=== PATIENT | female | born 1995 | race Caucasian/White ===

== ENCOUNTER 2018-05-11 07:17 | Inpatient (IN) ==
[2018-05-11] MEDS ORDERED: Ondansetron 4 MG/2 ML VIAL IVP PRN (07:42)
[2018-05-11] MEDS ORDERED: Naloxone 0.4 MG/ML INJ IVP PRN (07:42)
[2018-05-11] MEDS ORDERED: Famotidine 20 MG/2 ML VIAL IVP PRN (07:42)
[2018-05-11] MEDS ORDERED: *HR* Nalbuphine 10 MG/ML AMPUL IVP PRN (07:42)
[2018-05-11] MEDS ORDERED: Metoclopramide 10 MG/2 ML VIAL IVP PRN (07:42)
[2018-05-11 08:20] LABS: Basophils % 0.1 %; Eosinophils # 0.1 K/mcL (0.0-0.6); Eosinophils % 1.3 %; Hematocrit 30.3 % (35.3-44.9); Immature Granulocytes % 0.3 % (0-4); Lymphocytes # 1.2 K/mcL (0.6-4.6); Lymphocytes % 18.3 %; Mean Corpuscular Volume 93.8 fL (83.0-100.0); Monocytes # 0.4 K/mcL (0.0-1.3); Monocytes % 5.6 %; Platelet Count 153 K/mcL (140-400); Red Blood Count 3.23 M/mcL (3.82-4.97); Red Cell Distribution Width 13.7 % (11.5-14.5); Segmented Neutrophils % 74.4 %
[2018-05-11 08:28] LABS: Amphetamine Screen,Urine Negative ng/mL (Cutoff=1000); Barbiturate Screen,Urine Negative ng/mL (Cutoff=200); Benzodiazepines Screen,Urine Negative ng/mL (Cutoff=200); Cannabinoid Screen,Urine Negative ng/mL (Cutoff = 50); Cocaine Screen,Urine Negative ng/mL (Cutoff= 300); Opiate Screen,Urine Negative ng/mL (Cutoff=300); Phencyclidine Screen,Urine Negative ng/mL (Cutoff=25)
[2018-05-11] MEDS ORDERED: miSOPROStol 25 MCG TABLET PO PRN (08:39)
[2018-05-11] MEDS ORDERED: Oxytocin 20 units/ LR 1000 mL 20 UNIT/1,000 ML BAG IVC SCH (08:45)
[2018-05-11] MEDS: Ringers Solution, Lactated 1,000 ML IVC SCH ×3 (09:17→18:26)
--- NOTE | 2018-05-11 09:38 | Anesthesia Evaluation PreOp ---
Date of Encounter: 05/11/18 Time of Encounter: 08:45 - Past History Planned Operation: nixon Cardiac History: Denies any Significant Hx Pulmonary History: Denies Any Significant HX SURVEY STATISTICIAN History: Denies Any Significant HX Other Medical History: Denies Any Significant HX Anesthesia History: No Prior Anesthetic Complications : Yes Test: Positive Alcohol Use: none, unknown Drug use: none Medications and Allergies Multivitamin [Flintstones] 1 tab PO DAILY 01/06/18 [History] 3 Allergy/AdvReac Type Severity Reaction Status Date / Time Penicillins Allergy See Verified 05/11/18 07:59 Comments - Meds/Allergy Pre-op Review Medications Reviewed: Yes Allergies Reviewed: Yes Beta Blockers on Current Med List: No Anesthesia Results - Labs 05/11/18 08:00 Anesthesia Exam - HEENT Pupil (Motor): Pupils equal Mallampati: II Oral Opening: Greater than 3 - SURVEY STATISTICIAN LOC: Oriented SURVEY STATISTICIAN Motor: Normal RUE, Normal LUE, Normal RLE, Normal LLE, Normal Face SURVEY STATISTICIAN Sensory: Normal: RUE, LUE, RLE, LLE, Face - Cardiac Rhythm: Regular Murmur: None JVD: No Carotid Bruit: No - Pulmonary Breath Sounds: bilateral Clear Respiratory Effort: Symmetrical Anesthesia Assess/Plan ASA Score: 2 Modified Sasha Scale for Level of Consciousness: Cooperative, oriented, and tranquil Anesthetic Plan: Regional Autologous Blood: No Monitoring Plan: Standard Monitors
[2018-05-11] MEDS ORDERED: Epidural Premix (fent/bupiv) 110 ML EP SCH (09:45)
--- NOTE | 2018-05-11 11:43 | OB/GYN History & Physical ---
Date of Encounter: 05/11/18 Time of Encounter: 11:40 Assessment and Plan (1) 39 weeks gestation of Current visit: Yes Status: Acute (2) Elective induction of labor planned Current visit: Yes Status: Acute Admit to labor and delivery Cytotec 50 g by mouth 1 Nubain and epidural as desired Vancomycin for GBS prophylaxis Anticipate History of Present Illness HPI: Ms. Pelaez is a 23 year old female 39+ weeks gestation presents for induction of labor. care with midwives, course complicated by maternal obesity, smoking, Rh-, short-term interval between pregnancies last delivery 11 months ago. Reports good movement, denies vaginal bleeding contractions or leaking of fluid. Labs: O negative, rubella immune, GBS +, all other serologies negative. Past Med Surg Social Fam HX - Past Medical History Medical history: no medical history Psychiatric history: anxiety - Past Surgical History Surgical History: no surgical history - Social History Smoking Status: Former smoker Smokeless Tobacco Status: No Alcohol use: none, unknown Drug use: none - Family History Mother Living Status: Hx Family Cardiac Disorders: No Hx Family Respiratory Disorders: No Hx Family Cancer: No Hx Family GI Disorders: No Hx Family Genitourinary Disorders: No Hx Family Endocrine Disorder: No Hx Family Musculoskeletal Disorders: No Hx Family Neuromuscular Disorders: No Hx Family Neurologic Disorders: No Hx Family HEENT Disorders: No Hx Family Autoimmune Disorders: No Hx Family Reproductive Disorders: No Hx Family Psychosocial Disorders: No Hx Family Medical Disorders: No Obstetrical History - Pregnancies : 2 Para: 1 Term: 1 : 0 Ab's: 0 Livin Medications and Allergies Multivitamin [Flintstones] 1 tab PO DAILY 01/06/18 [History] 3 Allergy/AdvReac Type Severity Reaction Status Date / Time Penicillins Allergy See Verified 05/11/18 07:59 Comments Exam - Constitutional Constitutional: well developed, well nourished, no acute distress - Neck Neck exam: full ROM - Lungs Respiratory exam: CTAB - Cardiovascular Cardiovascular exam: RRR - Abdomen Abdomen: Present: gravid, non tender - Extremities Extremities exam: normal capillary refill, normal inspection - Cervix Dilation: 1 (per RN) Results Result Diagrams: 05/11/18 08:00 Abnormal lab results RBC 3.23 M/mcL (3.82-4.97) L 05/11/18 08:00 Hgb 10.0 g/dL (11.5-15.4) L 05/11/18 08:00 Hct 30.3 % (35.3-44.9) L 05/11/18 08:00 All other labs normal. - VTE Reasons for not Prescribing Prophylaxis: Treatment not Indicated - Low risk for VTE
--- NOTE | 2018-05-11 14:27 | OB Labor Progress Note ---
Date of Encounter: 05/11/18 Time of Encounter: 14:00 Labor Progress Note - Subjective Subjective: Pt states feeling more contractions - Cervix Cervix: 3/80/-2 - Heart Tones Heart Tones: Pt very non cooperative with montoring, 130/moderate/+accels when tracing - [place]: q2 - Plan Plan: Patient chandana and making cervical change Epidural when anesthesia available May have Nubain prior to epidural Plan to rupture after epidural placement Continue vancomycin for GBS prophylaxis Anticipate
[2018-05-11] MEDS ORDERED: Acetaminophen 325 MG TABLET PO PRN (14:33)
[2018-05-11] MEDS ORDERED: Lidocaine -MPF 1% 5 ML AMPUL ONE (15:07)
--- NOTE | 2018-05-11 15:56 | Anesthesia Procedures ---
Date of Encounter: 05/11/18 Time of Encounter: 15:50 Procedures: Anesthesia - Epidural/Spinal Patient ID/Chart reviewed: Yes Patient examined: Yes OB Eval: Gestational age: 39.1 OB Eval: : 2 OB Eval: Hx Para: 1 OB Eval: Contractions: Non-stressed pattern Supplemental Oxygen: None/Room Air Site Prep: Aseptic Technique, Sterile prep and drape, Povidone-Iodine 1% Patient position: upright Amount of Local Anesthetic used: 3 Touhy Needle Gauge: 18 Touhy Needle Depth (cm): 7 Catheter Depth at Skin (cm): 14 Test Dose Result: Negative Loading Dose Administered: Thru Catheter Infusion Rate (mls/hr): [address]: Tegaderm, Tape Interspace Used: L4-L5 Loss of Resistance (ALEIDA): Yes Blood: No CSF: No Paresthesia: No Vitals + FHT's: stable throughout see nursing record, tolerated procedure well.
--- NOTE | 2018-05-11 17:35 | OB Labor Progress Note ---
Date of Encounter: 05/11/18 Time of Encounter: 17:33 Labor Progress Note - Subjective Subjective: Pt comfortable with epidural - Cervix Cervix: 3/80/-1 - Heart Tones Heart Tones: 125/moderate/-accels/-decels - [place] Ione: 1-3 - Interventions Interventions: AROM for clear fluid IUPC placed FSE placed x2 first one not appropriately attached. - Plan Plan: Start pitocin per policy frequent repositioning Vancomycin for GBS Anticipate
--- NOTE | 2018-05-11 21:10 | OB Labor Progress Note ---
Date of Encounter: 05/11/18 Time of Encounter: 21:08 Labor Progress Note - Subjective Subjective: Comfortable with epidural - Cervix Cervix: 4/90/-2 - Heart Tones Heart Tones: 140/moderate/-accels/variables - [place]: q2 - Plan Plan: Continue pitocin per policy frequent repositioning vancomycin for GBS anticipate
--- NOTE | 2018-05-11 23:47 | OB/GYN Procedure Note ---
Delivery - Delivery Date: 05/11/18 Provider: Raquel Wilson Intrapartum events: none Delivery induction: AROM, oxytocin, misoprostol Delivery monitor: external FHT, external uterine, internal FHT, internal uterine Anesthesia: epidural Quantitated Blood Loss: 400 - Infant (s) Infant A Delivery Date: 05/11/18 Delivery Time: 23:29 Presentation: vertex Position: OA Route of delivery: Gender: Male Viability: Viable at 1 minute: 8 at 5 mins: 9 Shoulder Dystocia: not encountered Specimens collected: cord blood Placenta: spontaneous Cord: 3 umbilical vessels - Repair Episiotomy: none Laceration Description: None - Complications Delivery complications: none Delivery comments: Elective induction of labor, progressed to complete. Maternal bearing down efforts to of liveborn male. Vertex delivered OA, shoulders and body easily followed. No nuchal cord or shoulder dystocia encountered. Vigorous infant placed on lower maternal pelvis, due to short cord, Apgars 8/9. Placenta delivered spontaneously ([place]) and complete upon inspection. Fundus massaged until firm and Pitocin started per policy. Perineum intact. EBL 400 - Disposition Mom disposition: stable in LDR [place] disposition: stable in LDR
[2018-05-12] MEDS ORDERED: Rho Immune Globulin 1,500 UNIT SYRINGE IM PRN (02:17)
[2018-05-12] MEDS ORDERED: Lanolin 7 G OINT...G. TP PRN (02:17)
[2018-05-12] MEDS ORDERED: Benzocaine/Menthol 56 GM AEROSOL SPRAY TP PRN (02:17)
[2018-05-12] MEDS ORDERED: Oxytocin 20 units/ LR 1000 mL 20 UNIT/1,000 ML BAG IVC SCH (02:17)
[2018-05-12] MEDS: Acetaminophen 325 MG TABLET PO PRN ×3 (03:07→16:50)
[2018-05-12 07:02] LABS: Basophils % 0.3 %; Eosinophils % 0.3 %; Hemoglobin 9.5 g/dL (11.5-15.4); Immature Granulocytes % 0.3 % (0-4); Lymphocytes # 1.3 K/mcL (0.6-4.6); Lymphocytes % 11.3 %; Mean Corpuscular HGB Conc 31.7 g/dL (31.6-35.5); Mean Corpuscular Hemoglobin 30.4 pg (28.0-33.3); Mean Corpuscular Volume 95.8 fL (83.0-100.0); Mean Platelet Volume 12.2 fL (9.4-12.4); Monocytes # 0.7 K/mcL (0.0-1.3); Monocytes % 5.8 %; Neutrophils # 9.7 K/mcL (1.6-8.9); Platelet Count 143 K/mcL (140-400); Red Blood Count 3.13 M/mcL (3.82-4.97); Red Cell Distribution Width 13.7 % (11.5-14.5)
[2018-05-12] MEDS: Prenatal Vit/FA 1 EACH TABLET PO SCH (09:24)
--- NOTE | 2018-05-12 11:12 | OB/GYN Progress Note ---
Date of Encounter: 05/12/18 Time of Encounter: 11:10 - Assessment and Plan (1) Vaginal delivery Current Visit: Yes Status: Acute Continue routine care anticipate discharge home tomorrow Subjective - Subjective Principal diagnosis: day 1 Interval history: Patient doing well. Patient meeting day 1 milestones. Patient denies pain at this time. Patient reports: appetite normal, voiding normally, pain well controlled, ambulating normally [place]: doing well, bottle feeding Objective - Latest Vital Signs Latest vital signs: Vital Signs Temp Pulse Resp BP Pulse Ox 05/12/18 08:19 98.6 F 83 14 95/67 96 05/12/18 04:31 98.8 F 94 14 106/63 98 05/12/18 03:10 98.3 F 88 18 104/65 96 05/12/18 02:10 98.7 F 84 18 104/57 98 Intake and Output 05/11/18 05/12/18 05/12/18 23:59 07:59 15:59 Intake Total 1000 / 1000 200 / 200 900 / 900 Output Total 1550 / 1550 300 / 300 Balance 1000 / 1000 -1350 / -1350 600 / 600 Intake: IV Fluids 1000 / 1000 Lactated Ringers 1,000 ML @ 125 1000 / 1000 mls/hr IVC .Q8H TYRA Rx#: [id number] Oral 200 / 200 900 / 900 Output: Urine 550 / 550 300 / 300 Catheter 1000 / 1000 Other: Meal Breakfast Percent of Meal Consumed 10% Weight 134.1 kg Patient Weight 05/12/18 23:59 Weight 134.1 kg - Exam Lungs: bilateral: normal Abdomen: Present: normal appearance, soft Uterus: Present: normal, firm Uterus Position: At Umbilicus, Midline - Labs Labs: Laboratory Results - last 24 hr 05/12/18 05/12/18 00:50 06:34 WBC 11.8 H D RBC 3.13 L Hgb 9.5 L Hct 30.0 L MCV 95.8 MCH 30.4 MCHC 31.7 RDW 13.7 Plt Count 143 MPV 12.2 Immature Gran % 0.3 Seg Neutrophils % 82.0 Lymphocytes % 11.3 Monocytes % 5.8 Eosinophils % 0.3 Basophils % 0.3 Neutrophils # 9.7 H Lymphocytes # 1.3 Monocytes # 0.7 Eosinophils # 0.0 Basophils # 0.0 Baby's Blood Type A RH NEGATIVE Mother's Blood Type O RH NEGATIVE
[2018-05-12] MEDS ORDERED: Aminoglycoside Consult 1 EACH MC ONE (14:04)
[2018-05-12] MEDS: Ibuprofen 600 MG TABLET PO PRN (20:41)
[2018-05-13] MEDS: Prenatal Vit/FA 1 EACH TABLET PO SCH (07:47)
[2018-05-13 08:26] VITALS: BP 101/68
--- NOTE | 2018-05-13 08:44 | Discharge Summary ---
Date of Encounter: 05/13/18 Time of Encounter: 08:55 - Discharge Diagnosis (1) Status post normal vaginal delivery Priority: Primary Status: Acute Comments: Eating and drinking well. Voiding well. Had normal BM. Some cramping and back pain but well controlled with ibuprofen with minimal bleeding. Mood is good. Desires Depo shot prior to discharge. Stable for discharge. Follow up 4 weeks. (2) Low hemoglobin Priority: Secondary Status: Acute Comments: Hgb 9.5 today. Will continue Fe as outpatient. - Discharge Medications Prescriptions: Ibuprofen [Motrin] 600 mg PO Q6HR PRN 14 Days #56 tablet PRN Reason: Cramping Docusate [Colace] 100 mg PO BID 14 Days #28 capsule Ferrous Sulfate 325 mg PO DAILY 30 Days #30 tablet Home Medications: Multivitamin [Flintstones] 1 tab PO DAILY 01/06/18 [History] Docusate [Colace] 100 mg PO BID 14 Days #28 capsule 05/13/18 [Rx] Ferrous Sulfate 325 mg PO DAILY 30 Days #30 tablet 05/13/18 [Rx] Ibuprofen [Motrin] 600 mg PO Q6HR PRN 14 Days #56 tablet 05/13/18 [Rx] Vit/FA 1 each PO DAILY tablet 05/13/18 [Rx] Allergies/Adverse Reactions: 3 Allergy/AdvReac Type Severity Reaction Status Date / Time Penicillins Allergy See Verified 05/11/18 07:59 Comments Data Procedures and tests throughout hospitalization: Laboratory Tests 05/11/18 05/11/18 05/11/18 08:00 08:00 08:00 WBC 6.8 RBC 3.23 L Hgb 10.0 L Hct 30.3 L MCV 93.8 MCH 31.0 MCHC 33.0 RDW 13.7 Plt Count 153 MPV 12.0 Immature Gran % 0.3 Seg Neutrophils % 74.4 Lymphocytes % 18.3 Monocytes % 5.6 Eosinophils % 1.3 Basophils % 0.1 Neutrophils # 5.0 Lymphocytes # 1.2 Monocytes # 0.4 Eosinophils # 0.1 Basophils # 0.0 Urine Opiates Screen Negative Ur Barbiturates Screen Negative Ur Phencyclidine Scrn Negative Ur Amphetamines Screen Negative U Benzodiazepines Scrn Negative Urine Cocaine Screen Negative U Marijuana (THC) Screen Negative Ur Drug Screen Interp See Below Hep Bs Antigen Nonreactive Baby's Blood Type Mother's Blood Type Rhogam Indicated 05/12/18 05/12/18 00:50 06:34 WBC 11.8 H D RBC 3.13 L Hgb 9.5 L Hct 30.0 L MCV 95.8 MCH 30.4 MCHC 31.7 RDW 13.7 Plt Count 143 MPV 12.2 Immature Gran % 0.3 Seg Neutrophils % 82.0 Lymphocytes % 11.3 Monocytes % 5.8 Eosinophils % 0.3 Basophils % 0.3 Neutrophils # 9.7 H Lymphocytes # 1.3 Monocytes # 0.7 Eosinophils # 0.0 Basophils # 0.0 Urine Opiates Screen Ur Barbiturates Screen Ur Phencyclidine Scrn Ur Amphetamines Screen U Benzodiazepines Scrn Urine Cocaine Screen U Marijuana (THC) Screen Ur Drug Screen Interp Hep Bs Antigen Baby's Blood Type A RH NEGATIVE Mother's Blood Type O RH NEGATIVE Rhogam Indicated NO Labs on day of discharge: Labs from last 24 hours 05/12/18 00:50 Baby's Blood Type A RH NEGATIVE Mother's Blood Type O RH NEGATIVE Rhogam Indicated NO Date of admission: 05/11/18 07:17 Primary care physician: PCP NONE Consults: 05/12/18 02:17 Consult to [facility] [CONS] Routine Comment: Vaginal delivery, consult needed Discharging clinician: Samaria Villar Anticipated date of discharge: 05/13/18 - Patient Status Disposition: Home, Self-Care Condition: Good Functional capacity at discharge: independent ambulation Overall status at discharge: patient is progressing back to baseline - Discharge Instructions Follow Up With: Saroj Manriquez MD [Family Provider] - NONE,PCP [Primary Care Provider] - [facility] [Provider Group] Additional Instructions: - Follow up with [facility] in four weeks time. - Should you develop any vaginal bleeding similar to a period, soaking many pads or large clots, please call the office. If you develop any feelings of hopelessness, worthlessness, inability to moore to baby, or thoughts of harming yourself or others please contact the office or be seen in the hospital for treatment. - Take Iron tablets, twice daily with apple or orange juice until your follow up appointment. This is constipating so ensure you are well hydrated with water and continue taking docusate. - Take Ibuprofen 600mg every 6 hours as needed for pain and cramping. - Diet and Activity Activity: increase activity as tolerated Diet: advance to your usual diet Hospital Course [facility] Hospital course: Delivery - Delivery Date: 05/11/18 Provider: Raquel Wilson Intrapartum events: none Delivery induction: AROM, oxytocin, misoprostol Delivery monitor: external FHT, external uterine, internal FHT, internal uterine Anesthesia: epidural Quantitated Blood Loss: 400 - (s) Infant A Delivery Date: 05/11/18 Infant Delivery Time: 23:29 Presentation: vertex Position: OA Route of delivery: Gender: Male Viability: Viable at 1 minute: 8 at 5 mins: 9 Shoulder Dystocia: not encountered Specimens collected: cord blood Placenta: spontaneous Cord: 3 umbilical vessels - Repair Episiotomy: none Laceration Description: None - Complications Delivery complications: none Delivery comments: Elective induction of labor at 39+ weeks, progressed to complete. Maternal bearing down efforts to of liveborn male. Vertex delivered OA, shoulders and body easily followed. No nuchal cord or shoulder dystocia encountered. Vigorous infant placed on lower maternal pelvis, due to short cord , Apgars 8/9. Placenta delivered spontaneously ([place]) and complete upon inspection. Fundus massaged until firm and Pitocin started per policy. Perineum intact. EBL 400 Time Attestation: Total time spent providing and/or coordinating discharge services: Time Spent: Less than 30 minutes Exam - Constitutional Vitals: Temp Pulse Resp BP Pulse Ox 97.8 F 88 16 101/68 99 05/13/18 08:00 05/13/18 08:00 05/13/18 08:00 05/13/18 08:00 05/13/18 08:00 General appearance IM: A&O X 3, pleasant, no acute distress - Respiratory Respiratory exam: Present: CTAB - Cardiovascular Cardiovascular exam IM: Present: RRR, +S1, +S2 - GI/Abdominal GI/Abdominal exam IM: normal bowel sounds, soft - Uterine Tone: Firm Uterus Position: At Umbilicus, Midline - Extremities Exam Extremities exam IM: Present: full ROM, normal capillary refill - Neurological Exam Neurological exam: alert, oriented X3 - Psychiatric Additional comments: Patient states mood is "wonderful" - VTE Reasons for not Prescribing Prophylaxis: Treatment not Indicated - Low risk for VTE
[2018-05-13] MEDS: Ibuprofen 600 MG TABLET PO PRN (08:55)
== END 2018-05-13 14:05 | disposition home or self-care (01) | DRG 560 ==
LOC: 1NENULAB 07:17 → 1NENUOBS 05-12 02:00
PROVIDERS: ADMIT Advanced Practice Midwife; ATTEND Advanced Practice Midwife

== ENCOUNTER → 2020-05-19 20:55 | Observation (INO) ==
[~2020-05-19 20:55] MED LIST: Rho Immune Globulin 1,500 UNIT SYRINGE IM ONE
== END | disposition home or self-care (01) ==
LOC: 1NENULAB
PROVIDERS: ADMIT Advanced Practice Midwife; ATTEND Advanced Practice Midwife

== ENCOUNTER 2020-09-06 08:00 | Inpatient (IN) ==
[2020-09-06] MEDS ORDERED: Azithromycin 500 MG in 0.9 % Sodium Chloride 250 ML IVPB PRN (08:43)
[2020-09-06] MEDS ORDERED: Naloxone 0.4 MG/ML INJ IVP PRN (08:43)
[2020-09-06] MEDS ORDERED: miSOPROStoL 25 MCG TABLET PO PRN (08:43)
[2020-09-06] MEDS ORDERED: Ondansetron 4 MG/2 ML VIAL IVP PRN (08:43)
[2020-09-06] MEDS ORDERED: *HR* Nalbuphine 10 MG/ML AMPUL IV PRN (08:43)
[2020-09-06] MEDS ORDERED: Metoclopramide 10 MG/2 ML VIAL IVP PRN (08:43)
[2020-09-06] MEDS ORDERED: Famotidine 20 MG/2 ML VIAL IVP PRN (08:43)
[2020-09-06] MEDS ORDERED: Oxytocin 20 units/ LR 1000 mL 20 UNIT/1,000 ML BAG IVC SCH ×2 (08:45→21:09)
[2020-09-06] MEDS: Ringers Solution, Lactated 1,000 ML IVC SCH ×3 (09:58→14:37)
[2020-09-06] MEDS ORDERED: *HR* FentaNYL (PF) 100 MCG/2 ML VIAL EP ONE (10:42)
[2020-09-06] MEDS ORDERED: EPHEDrine 50 MG/ML VIAL IVP PRN (10:42)
[2020-09-06] MEDS ORDERED: Bupivacaine-MPF 0.25% 10 ML VIAL EP ONE (10:42)
[2020-09-06] MEDS ORDERED: Epidural Premix (fent/bupiv) 110 ML EP SCH (10:45)
[2020-09-06] MEDS ORDERED: Bupivacaine-MPF 0.25% 10 ML VIAL ONE (10:48)
[2020-09-06] MEDS ORDERED: *HR* FentaNYL (PF) 100 MCG/2 ML VIAL ONE (10:48)
[2020-09-06 11:30] LABS: Amphetamine Screen,Urine Negative ng/mL (Cutoff=1000); Barbiturate Screen,Urine Negative ng/mL (Cutoff=200); Benzodiazepines Screen,Urine Negative ng/mL (Cutoff=200); Cannabinoid Screen,Urine Negative ng/mL (Cutoff = 50); Cocaine Screen,Urine Negative ng/mL (Cutoff= 300); Opiate Screen,Urine Negative ng/mL (Cutoff=300); Phencyclidine Screen,Urine Negative ng/mL (Cutoff=25)
[2020-09-06 11:38] LABS: Basophils % 0.4 %; Eosinophils # 0.1 K/mcL (0.0-0.6); Eosinophils % 1.2 %; Hematocrit 35.1 % (35.3-44.9); Hemoglobin 11.2 g/dL (11.5-15.4); Immature Granulocytes % 0.3 % (0-4); Lymphocytes # 1.5 K/mcL (0.6-4.6); Lymphocytes % 15.9 %; Mean Corpuscular HGB Conc 31.9 g/dL (31.6-35.5); Mean Corpuscular Hemoglobin 32.2 pg (28.0-33.3); Mean Corpuscular Volume 100.9 fL (83.0-100.0); Mean Platelet Volume 12.7 fL (9.4-12.4); Monocytes # 0.6 K/mcL (0.0-1.3); Platelet Count 147 K/mcL (140-400); Red Blood Count 3.48 M/mcL (3.82-4.97); Red Cell Distribution Width 14.2 % (11.5-14.5); Segmented Neutrophils % 76.2 %; White Blood Count 9.2 K/mcL (4.3-11.1)
[2020-09-06] MEDS ORDERED: Measles/Mumps/Rubella Vacc 0.5 ML VIAL SQ PRN (21:09)
[2020-09-06] MEDS ORDERED: Rho Immune Globulin 1,500 UNIT SYRINGE IM PRN (21:09)
[2020-09-06] MEDS: Acetaminophen 325 MG TABLET PO PRN (22:03)
[2020-09-07 05:23] LABS: Hematocrit 32.8 % (35.3-44.9); Hemoglobin 10.7 g/dL (11.5-15.4); Mean Corpuscular HGB Conc 32.6 g/dL (31.6-35.5); Mean Corpuscular Hemoglobin 32.2 pg (28.0-33.3); Mean Corpuscular Volume 98.8 fL (83.0-100.0); Red Blood Count 3.32 M/mcL (3.82-4.97)
[2020-09-07 05:25] LABS: Basophils % 0.3 %; Eosinophils # 0.1 K/mcL (0.0-0.6); Immature Granulocytes % 0.3 % (0-4); Immature Platelets 10.3 % (1.1-6.1); Mean Platelet Volume 12.5 fL (9.4-12.4); Monocytes # 0.6 K/mcL (0.0-1.3); Monocytes % 6.3 %; Neutrophils # 6.4 K/mcL (1.6-8.9); Platelet Count 121 K/mcL (140-400); Red Cell Distribution Width 14.1 % (11.5-14.5); Segmented Neutrophils % 70.1 %; White Blood Count 9.1 K/mcL (4.3-11.1)
[2020-09-07] MEDS ORDERED: Prenatal Vit/FA 1 EACH TABLET PO SCH (09:00)
[2020-09-07] MEDS: Acetaminophen 325 MG TABLET PO PRN (09:03)
[2020-09-07] MEDS ORDERED: Ibuprofen 600 MG TABLET PO PRN (16:23)
[2020-09-07 16:44] VITALS: BP 115/67
== END 2020-09-07 21:45 | disposition home or self-care (01) | DRG 560 ==
LOC: 1NENULAB 08:00 → 1NENUOBS 20:50
PROVIDERS: ADMIT Advanced Practice Midwife; ATTEND Advanced Practice Midwife